=== PATIENT | male | born 1980 | race Caucasian/White ===

== ENCOUNTER → 2016-09-23 | Outpatient (CLI) | payer OTHER ==
--- NOTE | 2016-09-23 15:00 | RADRPT ---
EXAM DATE/TIME: 09/23/2016 14:22 [place] COMPARISON: No previous studies available for comparison. INDICATIONS : Right shoulder pain, no injury. MEDICAL HISTORY : None. SURGICAL HISTORY : None. ENCOUNTER: Initial ACUITY: 1 year PAIN SCORE: 0/10 LOCATION: Right proximal shoulder FINDINGS: Multiple view examination of the right shoulder demonstrates no evidence of fracture or dislocation. The glenohumeral and acromioclavicular joints are maintained. There is normal range of motion betwe en internal and external rotation. Bony mineralization is normal. CONCLUSION: Unremarkable examination of the right shoulder. Lux Higginbotham Jr., MD on September 23, 2016 at 14:58 Board Certified Radiologist. This report was verified electronically.
== END ==
LOC: HRAD 13:58
DX: M25.511 Pain in right shoulder (principal)
CPT/HCPCS: 73030